=== PATIENT | male | born 1970 | race African-American/Black ===

== ENCOUNTER 2022-04-29 03:03 | Observation (INO) ==
[2022-04-29] MEDS ORDERED: ACETAMINOPHEN 325 MG TABLET PO PRN (06:03)
[2022-04-29] MEDS ORDERED: ONDANSETRON 4 MG/2 ML VIAL IV PRN ×2 (06:03→10:28)
[2022-04-29] MEDS ORDERED: DEXTROSE 10% 250 ML BAG IV PRN (06:03)
[2022-04-29] MEDS ORDERED: GLUCAGON 1 MG VIAL IM PRN (06:03)
[2022-04-29 06:31] LABS: Basophils % 0.3 % (0.0-0.8); Eosinophils # 0.2 10*3/uL (0.0-0.87); Eosinophils % 3.5 % (0.00-10.9); Hematocrit 32.7 VOL% (42.0-52.0); Hemoglobin 10.5 GM/DL (14.0-18.0); Immature Granulocytes % 0.3 %; Immature Granulocytes Absolute 0.02 #; Lymphocytes % 17.6 % (21.2-54.2); Mean Corpuscular HGB Conc 32.1 GM/DL (32-36); Mean Corpuscular Volume 87.7 FL (87-102); Monocytes # 0.5 10*3/uL (0.11-0.8); Monocytes % 8.4 % (1.7-12.7); Neutrophils % 69.9 % (38.7-73.9); Platelet Count 264 T/CUMM (130-400); Red Blood Count 3.73 MC/CUMM (3.8-5.5); Red Cell Distribution Width 13.7 % (9.3-17.3); White Blood Count 5.9 T/CUMM (4-12)
[2022-04-29 06:51] LABS: Alanine Aminotransferase 119 U/L (16-61); Albumin 2.9 G/DL (3.4-5.0); Alkaline Phosphatase 134 U/L (45-117); Aspartate Amino Transferase 49 U/L (0-37); Bilirubin,Total < 0.39 MG/DL (0.20-1.00); Blood Urea Nitrogen 20 MG/DL (7-18); Calcium 9.6 MG/DL (8.5-10.1); Carbon Dioxide 25 MMOL/L (21-32); Chloride 96 MMOL/L (98-107); Glucose 117 MG/DL (74-106); Osmolality,Calculated 263.8 MOS/KG (273-304); Potassium 3.6 MMOL/L (3.5-5.1); Sodium 130 MMOL/L (136-145); Total Protein 8.8 G/DL (6.4-8.2)
[2022-04-29] MEDS: PANTOPRAZOLE 40 MG TABLET PO SCH (08:10)
[2022-04-29] MEDS ORDERED: cefTRIAXone 1,000 MG in SODIUM CHLORIDE 0.9% 100 ML IV ONE (08:35)
[2022-04-29] MEDS ORDERED: PROMETHAZINE INJ 25 MG in SODIUM CHLORIDE 0.9% 50 ML IV PRN (10:28)
[2022-04-29] MEDS ORDERED: diphenhydrAMINE 50 MG/1 ML VIAL IV PRN (10:28)
[2022-04-29] MEDS ORDERED: HYDROmorphone 1 MG/1 ML SYRINGE IV PRN (10:28)
[2022-04-29] MEDS ORDERED: MEPERIDINE 25 MG/1 ML VIAL IV PRN (10:28)
[2022-04-29] MEDS ORDERED: propofoL 200 MG/20 ML VIAL IV ONE (13:04)
[2022-04-29] MEDS ORDERED: LIDOCAINE 2% 5 ML VIAL ONE (13:04)
[2022-04-29] MEDS ORDERED: MIDAZOLAM 2 MG/2 ML VIAL ONE ×2 (13:04→13:05)
[2022-04-29] MEDS ORDERED: KETAMINE 500 MG/10 ML VIAL ONE (13:05)
[2022-04-29] MEDS ORDERED: fentaNYL 100 MCG/2 ML VIAL ONE (13:05)
[2022-04-29] MEDS ORDERED: cefTRIAXone 1,000 MG VIAL ONE (13:14)
[2022-04-29] MEDS ORDERED: ONDANSETRON 4 MG/2 ML VIAL ONE (13:31)
[2022-04-29] MEDS ORDERED: DEXAMETHASONE 4 MG/1 ML VIAL ONE (13:31)
[2022-04-29] MEDS ORDERED: SODIUM CHLORIDE 0.9% 1,000 ML IV ONE (13:32)
[2022-04-29 14:14] LABS: Mucus,Urine Occasional /LPF (Occasional); RBC,Urine 239 /HPF (0-4)
[2022-04-29 14:16] LABS: Bilirubin,Urine Negative (Negative); Blood, Urine Large mg/dL (Negative); Glucose,Urine (UA) Negative (Negative); Ketones,Urine Negative (Negative); Nitrite,Urine Negative (Negative); Protein,Urine 100 mg/dL (Negative); Urine Appearance Slightly Cloudy (Clear); Urine Color Yellow (Yellow); Urine Specific Gravity 1.015 (1.001-1.035); Urine Urobilinogen 0.2 eU/dL (<2.0); Urine pH 5.5 (4.5-8.0)
[2022-04-30 05:21] LABS: Basophils % 0.4 % (0.0-0.8); Eosinophils # 0.2 10*3/uL (0.0-0.87); Eosinophils % 3.3 % (0.00-10.9); Hematocrit 32.7 VOL% (42.0-52.0); Hemoglobin 10.4 GM/DL (14.0-18.0); Immature Granulocytes % 0.6 %; Immature Granulocytes Absolute 0.03 #; Lymphocytes # 1.3 10*3/uL (1.4-4.0); Mean Corpuscular HGB Conc 31.8 GM/DL (32-36); Monocytes # 0.4 10*3/uL (0.11-0.8); Monocytes % 8.6 % (1.7-12.7); Neutrophils % 62.1 % (38.7-73.9); Platelet Count 310 T/CUMM (130-400); Red Blood Count 3.76 MC/CUMM (3.8-5.5); Red Cell Distribution Width 13.8 % (9.3-17.3); White Blood Count 5.1 T/CUMM (4-12)
[2022-04-30 05:37] LABS: Calcium 9.2 MG/DL (8.5-10.1); Osmolality,Calculated 272.8 MOS/KG (273-304); Potassium 3.6 MMOL/L (3.5-5.1)
[2022-04-30] MEDS: PANTOPRAZOLE 40 MG TABLET PO SCH (08:15)
[2022-04-30 12:04] VITALS: BP 93/55
== END 2022-04-30 16:45 ==
LOC: INTOOBSV 04:06 → SUATTDRO 04:06 → N.3E 04:06
PROVIDERS: ADMIT Internal Medicine; ATTEND Emergency Medicine